=== PATIENT | female | born 1990 | race African-American/Black ===

== ENCOUNTER 2018-05-18 17:33 | Emergency (ER) | payer BC ==
[~2018-05-18] VITALS: Ht 165.1 cm; Wt 99.3 kg
[~2018-05-18 17:33] MED LIST: AUGMENTIN 875-1 EACH PO; BACTRIM DS TAB1 EACH PO; CEPHALEXIN 500500 M2; CIPRO500 MG PO; CIPROFLOXACIN500 M1 PO; FLAGYL500 MG PO; FLEXERIL PO; HYDROCODONE-AP1 EAC6 PO; IBUPROFEN 800800 MG PO; LORTABELXR PO; NAPROSYN500 MG PO; NOHOMEMEDICATIONS; NORCO 5-325 TA1 EACH PO; ONDANSETRON HCL4 M3 PO; PHENERGAN 25 MG25 M1 PO; SKIN CREAM; TRAMADOL 50 MG50 MG PO; ZOFRAN4 MG PO
[2018-05-18 17:48] LABS: URINE BILIRUBIN NEGATIVE (Negative); URINE BLOOD 2+ (Negative); URINE CLARITY CLEAR; URINE COLOR YELLOW; URINE GLUCOSE-RANDOM NEGATIVE (Negative); URINE KETONES NEGATIVE (Negative); URINE LEUKOCYTES-REFLEX NEGATIVE (Negative); URINE NITRITE-REFLEX NEGATIVE (Negative); URINE PROTEIN TRACE (Negative); URINE SPECIFIC GRAVITY 1.025 (1.005-1.030)
[2018-05-18] MEDS ORDERED: ADIPEX-P37.5 MG PO (17:50)
[2018-05-18 17:59] LABS: BACTERIA-REFLEX 1-9 Few /HPF (None Seen); CASTS None Seen /LPF (None Seen); CRYSTALS None Seen /LPF (None Seen); MUCUS 4-6 Moderate strn/LPF (None Seen); SQUAMOUS 4-10 Moderate /LPF (0-3); URINE RBC 3-10 Few /HPF (0-2); URINE WBC-REFLEX 0-5 Rare /HPF (0-5)
[2018-05-18 19:20] VITALS: BP 130/82
== END 2018-05-18 19:24 | disposition home or self-care (01) ==
LOC: M.ERS 17:33
PROVIDERS: Nurse Practitioner Family
DX: A59.01 Trichomonal vulvovaginitis (principal); E78.00 Pure hypercholesterolemia, unspecified

== ENCOUNTER 2018-10-01 20:10 | Emergency (ER) | payer BC ==
[~2018-10-01] VITALS: Ht 167.6 cm; Wt 96.9 kg
[~2018-10-01 20:10] MED LIST changes: +ADIPEX-P37.5 MG PO
[2018-10-01] MEDS ORDERED: FLEXERIL PO (21:28)
[2018-10-01] MEDS ORDERED: TRAMADOL 50 MG50 MG PO (21:28)
[2018-10-01 21:37] VITALS: BP 123/47
== END 2018-10-01 21:37 | disposition home or self-care (01) ==
LOC: M.ERS 20:10
DX: M25.552 Pain in left hip (principal); E78.00 Pure hypercholesterolemia, unspecified

== ENCOUNTER 2020-03-20 09:46 | Emergency (ER) | payer BC ==
[~2020-03-20] VITALS: Ht 167.6 cm; Wt 83.9 kg
[2020-03-20] MEDS ORDERED: SUPER THERAVIT1 EACH PO (10:06)
[2020-03-20] MEDS ORDERED: NABUMETONE 750750 M1 PO (11:18)
[2020-03-20 11:41] VITALS: BP 118/82
== END 2020-03-20 11:42 | disposition home or self-care (01) ==
LOC: M.ERS 09:46
DX: S63.592A Other specified sprain of left wrist, initial encounter (principal); E78.00 Pure hypercholesterolemia, unspecified; W01.0XXA Fall on same level from slipping, tripping and stumbling without subsequent striking against object, initial encounter; Y93.89 Activity, other specified; Y92.89 Other specified places as the place of occurrence of the external cause; Y99.8 Other external cause status